=== PATIENT | female | born 1975 | race African-American/Black ===

== ENCOUNTER 2017-04-16 09:59 | Emergency (ER) | payer SELFPAY ==
[2017-04-16 10:25] VITALS: BP 187/90
--- NOTE | 2017-04-16 10:26 | UC ---
Neck Pain HPI - HPI Summary HPI Summary: 41 year old female presents with left sided neck spasm/pain. - History of Current Complaint Chief Complaint: UCUpperExtremity Stated Complaint: SHOULDER AND NECK PAIN Time Seen by Provider: 04/16/17 10:26 Hx Obtained From: Patient Hx Last Menstrual Period: 03/26/17 Onset/Duration Of Injury/Symptoms: Days Onset/Duration: Sudden Onset Severity: Moderate Pain Scale Used: 0-10 Numeric - 7 Character: Sharp, Spasmotic Aggravating Factors: Movement, Medication Alleviating Factors: Position Associated Signs & Symptoms: Positive: Negative - Allergies/Home Medications Allergies/Adverse Reactions: Allergies Allergy/AdvReac Type Severity Reaction Status Date / Time Amoxicillin Allergy Rash Verified 04/16/17 10:25 Penicillins Allergy Rash Verified 04/16/17 10:25 PMH/Surg Hx/FS Hx/Imm Hx Previously Healthy: Yes - Surgical History Surgical History: Yes Surgery Procedure, Year, and Place: TONSILLECTOMY 1997 - Family History Known Family History: Positive: Hypertension - Social History Alcohol Use: Occasionally Substance Use Type: None Smoking Status (MU): Heavy Every Day Tobacco Smoker Type: Cigarettes Amount Used/How Often: 1/2 PPD Have You Smoked in the Last Year: Yes Household Exposure Type: Cigarettes - Immunization History Most Recent Influenza Vaccination: NOT UTD Review Of Systems Constitutional: Positive: Negative Skin: Positive: Negative Eyes: Positive: Negative ENT: Positive: Negative Respiratory: Positive: Negative Cardiovascular: Positive: Negative Gastrointestinal: Positive: Negative Genitourinary: Positive: Negative Musculoskeletal: Positive: Other: - neck spasm Neurological: Positive: Negative All Other Systems Reviewed And Are Negative: Yes Physical Exam Triage Information Reviewed: Yes Vital Signs: Initial Vital Signs Temp 37.7 C 04/16/17 10:20 Pulse 83 04/16/17 10:20 Resp 18 04/16/17 10:20 BP 187/90 04/16/17 10:20 Pulse Ox 100 04/16/17 10:20 Eye Exam: Normal ENT Exam: Normal Dental Exam: Normal Neck: Positive: Other: - neck spasm Respiratory Exam: Normal Cardiovascular Exam: Normal Abdominal Exam: Normal Musculoskeletal Exam: Normal Neurological Exam: Normal Psychological Exam: Normal Skin Exam: Normal Neck Pain Course/Dx - Differential Dx/Diagnosis Provider Diagnoses: neck spasm Discharge - Discharge Plan Condition: Stable Disposition: HOME Prescriptions: Meloxicam(NF) [Mobic(NF)] 7.5 mg PO BID #30 tab Methocarbamol TAB* [Robaxin 500 MG TAB*] 500 mg PO TID PRN #30 tab PRN Reason: Spasms Patient Education Materials: Muscle Spasm (ED) Forms: *Work Release Referrals: [facility] Physical therapy,PT [Medical Doctor] - No Primary Care Phys,NOPCP [Primary Care Provider] -
== END 2017-04-16 10:43 | disposition home or self-care (01) ==
LOC: UCEAST 09:59
DX: M62.838 Other muscle spasm (principal); F17.210 Nicotine dependence, cigarettes, uncomplicated; Z88.0 Allergy status to penicillin
CPT/HCPCS: 99212; G0463

== ENCOUNTER 2017-07-29 07:04 | Emergency (ER) | payer BC ==
[2017-07-29 07:21] VITALS: BP 139/90
--- NOTE | 2017-07-29 08:01 | RAD ---
INDICATION: Cough COMPARISON: Most recent comparison chest x-ray is dated November 02, 2007 TECHNIQUE: PA and lateral views of the chest were obtained. FINDINGS: The heart and mediastinum are normal in size and contour. The lungs are grossly clear. There is no evidence of large pleural effusion. Visualized bones are normal for the patient's age. There is no radiographic evidence of free air beneath the diaphragm IMPRESSION: No radiographic evidence of acute cardiopulmonary disease.
--- NOTE | 2017-07-29 08:38 | UC ---
Farhad aCrr Stephanie, scribed for Keenan Roldan MD on 07/29/17 at 0741 . Respiratory Complaint HPI - HPI Summary HPI Summary: The pt is a 42 y/o F presenting to with c/o SOB that began on 07/26/17. Symptoms include dry cough and chills. She states she was recently sick 3 weeks ago with chills and watery eyes. - History of Current Complaint Chief Complaint: UCGeneralIllness Stated Complaint: CHEST CONGESTION, AND COUGH Time Seen by Provider: 07/29/17 07:10 Hx Obtained From: Patient Hx Last Menstrual Period: 07/22/17 ?: No Onset/Duration: Gradual Onset, Lasting Days - 3, Still Present Severity Currently: Moderate Pain Intensity: 8 Pain Scale Used: 0-10 Numeric Character: Cough: Nonproductive Aggravating Factors: Nothing Alleviating Factors: Nothing Associated Signs And Symptoms: Positive: Chills Related History: Seasonal Allergies - Allergies/Home Medications Allergies/Adverse Reactions: Allergies Allergy/AdvReac Type Severity Reaction Status Date / Time amoxicillin Allergy Rash Verified 07/29/17 07:25 Penicillins Allergy Rash Verified 07/29/17 07:25 Home Medications: Home Medications Ibuprofen 400 mg PO Q6HR 07/29/17 [History Confirmed 07/29/17] PMH/Surg Hx/FS Hx/Imm Hx Respiratory History: Asthma, Other - seasonal allergies Other Respiratory History: none - Surgical History Surgical History: Yes Surgery Procedure, Year, and Place: TONSILLECTOMY 1997 - Family History Known Family History: Positive: Hypertension - Social History Occupation: Employed Full-time Lives: With Family Alcohol Use: Occasionally Substance Use Type: None Smoking Status (MU): Heavy Every Day Tobacco Smoker Type: Cigarettes Amount Used/How Often: 1/2 PPD Have You Smoked in the Last Year: Yes Household Exposure Type: Cigarettes - Immunization History Most Recent Influenza Vaccination: NOT UTD Review of Systems Constitutional: Chills Skin: Negative Eyes: Negative ENT: Negative Respiratory: Cough Cardiovascular: Negative Gastrointestinal: Negative Genitourinary: Negative Motor: Negative Neurovascular: Negative Musculoskeletal: Negative Neurological: Negative Psychological: Negative Is Patient Immunocompromised?: No All Other Systems Reviewed And Are Negative: Yes Physical Exam - Summary Physical Exam Summary: VITAL SIGNS: Reviewed. GENERAL: Patient is a well developed and nourished F who is lying comfortable in the stretcher. Patient is not in any acute respiratory distress. HEAD AND FACE: Normocephalic EYES: PERRLA, EOMI x 2. EARS: Hearing grossly intact. MOUTH: Oropharynx within normal limits. NECK: Supple, trachea is midline, no adenopathy, no JVD, no carotid bruit. CHEST: Symmetric, no tenderness at palpation LUNGS: coarse breath sounds bilaterally. CVS: Regular rate and rhythm, S1 and S2 present, no murmurs or gallops appreciated. ABDOMEN: Soft, non-tender. Bowel sounds are normal. No abdominal abnormal pulsations. EXTREMITIES: Full ROM in all major joints, no edema, no cyanosis or clubbing. NEURO: Alert and oriented x 3. No acute neurological deficits. Speech is normal and follows commands. SKIN: diaphoretic and warm Triage Information Reviewed: Yes Vital Signs: Initial Vital Signs Temp 99.4 F 07/29/17 07:14 Pulse 94 07/29/17 07:14 Resp 20 07/29/17 07:14 BP 139/90 07/29/17 07:14 Pulse Ox 99 07/29/17 07:14 Vital Signs Reviewed: Yes Diagnostic Evaluation - Laboratory O2 Sat by Pulse Oximetry: 99 Respiratory Course/Dx - Course Course Of Treatment: The pt is a 42 y/o F presenting to with c/o SOB that began on 07/26/17. Symptoms include dry cough and chills. She states she was recently sick 3 weeks ago with chills and watery eyes. I discussed all the findings and test results with the patient. Patient was instructed to return to the urgent care or go to ER immediately if any of the symptoms return or worsens. Plan of care was discussed with the patient, and patient understands and agrees. All questions were answered to patient satisfaction. There were no further complaints or concerns. Patient ? intermittent and dry productive cough and intermittent fever. She has hx of Asthma. CXR no acute pathology. Breath sounds are coarse. I believe patient has Bronchitis. Because of the PMH and the length of the symptoms I will be given patient Rx for Z bryan. Influenza test negative. I discussed all the findings and test results with the patient. Patient was instructed to return to the emergency room immediately if any of the symptoms return or worsens. Plan of care was discussed with the patient and understands and agrees. All questions were answered at patient satisfaction. There were no further complaints or concerns. Lung exam before discharge: CTA B /L. Good air exchange. No wheezing or crackles heard. CVS: S1 and S2 present. No murmurs appreciated. Patient is alert and oriented x 3. Patient is hemodynamically stable. Patient will be discharged home with follow up [employer] in the next 2-3 days. The patient was found to have increased BP in UC. The patient will follow up with PCP for better control of BP. - Differential Dx/Diagnosis Differential Diagnosis/HQI/PQRI: Asthma, Bronchitis, CHF, Pulmonary Edema, Lower Resp Infection, Sinusitis Provider Diagnoses: Bronchitis. elevated BP without dx of HTN Discharge - Sign-Out/Discharge Documenting (check all that apply): Discharge - Discharge Plan Condition: Stable Disposition: HOME Prescriptions: Azithromyxin BRYAN (NF) [Z-Bryan (Zithromax) 250 mg tabs #6] 2 tab PO .TODAY, THEN 1 DAILY #6 tab Patient Education Materials: Acute Bronchitis (ED) Referrals: [facility] [place] PHYSICIAN REFERRAL [Outside] Additional Instructions: Take medications as instructed Increase your fluid intake Return to the UC if symptoms worsen FOLLOW UP WITH YOUR PRIMARY CARE PROVIDER WITHIN ONE WEEK FOR HIGH BLOOD PRESSURE NOTED TODAY. - Billing Disposition and Condition Condition: STABLE Disposition: HOME The documentation as recorded by the Farhad kang Stephanie accurately reflects the service I personally performed and the decisions made by me, Keenan Roldan MD.
== END 2017-07-29 08:34 | disposition home or self-care (01) ==
LOC: UCEAST 07:04
DX: J40 Bronchitis, not specified as acute or chronic (principal); R03.0 Elevated blood-pressure reading, without diagnosis of hypertension; Z88.0 Allergy status to penicillin; F17.210 Nicotine dependence, cigarettes, uncomplicated
CPT/HCPCS: 71046; 87502; 99212; G0463

== ENCOUNTER 2017-08-02 10:36 | Emergency (ER) | payer BC ==
[2017-08-02] MEDS ORDERED: Albuterol/Ipratropium NEB.SOL* Albuterol 2.5 MG/Ipratropium 0.5 MG 3 ML INH ONE (11:54)
[2017-08-02 13:40] VITALS: BP 138/71
--- NOTE | 2017-08-02 16:36 | ED ---
Patricia Carr Nilda, scribed for Ramana Jara MD on 08/02/17 at 1150 . Respiratory - HPI Summary HPI Summary: This patient is a 42 year old F presenting to [facility] accompanied by family with a chief complaint of constant severe cough for the past week. 5 days ago, pt went to [facility] [place], was Dx with bronchitis, and given Z-abbie. CXR at [facility] was negative as well as flu tests, per pt. Pt states she completed course of Z-abbie today, but symptoms have worsened. The patient rates the sharp pain 8/10 in severity. Patient reports chills, neck pain, back pain, and SOB (worse at night) . Patient denies fever. PMHx includes seasonal asthma treated with nebulizer and inhaler in the past. Pt is a smoker. - History of Current Complaint Chief Complaint: EDFluSymptoms Stated Complaint: SOB/COUGH/VOMITING Time Seen by Provider: 08/02/17 11:39 Hx Obtained From: Patient Onset/Duration: Sudden Onset, Lasting Weeks, Still Present Timing: Constant Current Severity: Severe Pain Intensity: 8 Character: Cough (Nonproductive) Alleviating Factor(s): Nothing Associated Signs and Symptoms: Chills - Allergy/Home Medications Allergies/Adverse Reactions: Allergies Allergy/AdvReac Type Severity Reaction Status Date / Time amoxicillin Allergy Rash Verified 08/02/17 11:55 Penicillins Allergy Rash Verified 08/02/17 11:55 PMH/Surg Hx/FS Hx/Imm Hx Endocrine/Hematology History: Denies: Hx Diabetes, Hx Thyroid Disease Cardiovascular History: Reports: Hx Hypertension Respiratory History: Reports: Hx Asthma Denies: Hx Chronic Obstructive Pulmonary Disease (COPD) GI History: Denies: Hx Ulcer Psychiatric History: Denies: Hx Eating Disorder, Hx of Violent Episodes Against Others - Surgical History Surgery Procedure, Year, and Place: TONSILLECTOMY 1998 Infectious Disease History: No Infectious Disease History: Denies: Hx Clostridium Difficile, Hx Hepatitis, Hx Human Immunodeficiency Virus (HIV), Hx of Known/Suspected MRSA, Traveled Outside the [place] in Last 30 Days - Family History Known Family History: Positive: Hypertension - Social History Alcohol Use: Occasionally Substance Use Type: Reports: None Smoking Status (MU): Heavy Every Day Tobacco Smoker Type: Cigarettes Amount Used/How Often: 1/2 PPD Have You Smoked in the Last Year: Yes Review of Systems Positive: Chills. Negative: Fever Positive: Shortness Of Breath, Cough Positive: Other - back pain, neck pain All Other Systems Reviewed And Are Negative: Yes Physical Exam - Summary Physical Exam Summary: Appearance: The patient is well-nourished in no acute distress and in no acute pain. Skin: The skin is warm and dry and skin color reflects adequate perfusion. HEENT: The head is normocephalic and atraumatic. The pupils are equal and reactive. The conjunctivae are clear and without drainage. Nares are patent and without drainage. Mouth reveals moist mucous membranes and the throat is without erythema and exudate. The external ears are intact. The ear canals are patent and without drainage. The tympanic membranes are intact. Neck: the neck is supple with full range of motion and non-tender. There are no carotid bruits. There is no neck vein distension. Respiratory: Chest is non-tender. Decreased breath sounds. A few rhonchi diffusely. Cardiovascular: Heart is regular rate and rhythm. There is no murmur or rub auscultated. There is no peripheral edema and pulses are symmetrical and equal. Abdomen: The abdomen is soft and non-tender. There are normal bowel sounds heard in all four quadrants and there is no organomegaly palpated. Musculoskeletal: There is no back tenderness noted. Extremities are non-tender with full range of motion. There is good capillary refill. There is no peripheral edema or calf tenderness elicited. Neurological: Patient is alert and oriented to person, place and time. The patient has symmetrical motor strength in all four extremities. Cranial nerves are grossly intact. Deep tendon reflexes are symmetrical and equal in all four extremities. Psychiatric: The patient has an appropriate affect and does not exhibit any anxiety or depression. Triage Information Reviewed: Yes Vital Signs On Initial Exam: Initial Vitals Temp Pulse Resp BP Pulse Ox 97.8 F 77 22 158/84 100 08/02/17 10:37 08/02/17 10:37 08/02/17 10:37 08/02/17 10:37 08/02/17 10:37 Vital Signs Reviewed: Yes Diagnostics - Vital Signs Vital Signs Temp Pulse Resp BP Pulse Ox 08/02/17 10:37 97.8 F 77 22 158/84 100 - Laboratory Lab Statement: Any lab studies that have been ordered have been reviewed, and results considered in the medical decision making process. Re-Evaluation - Re-Evaluation First Eval Re-Evaluation Time: 13:12 Change: Improved Comment: Pt improved after breathing treatment. Discussed treatment plan with pt. Pt requests stronger cough medicine. Disposition - Course Course Of Treatment: Ms. Nova has a history of asthma but has not been on medications for a few years. She used to use a nebulizer. She has had a recent diagnosis of bronchitis and was placed on a Z-pack but feels worse. She had mild wheezing on arrival and felt a bit better with a neb. I started her on steeroids and an inhaler temporarily. - Diagnoses Provider Diagnoses: Asthma exacerbation Discharge - Sign-Out/Discharge Documenting (check all that apply): Discharge - home - Discharge Plan Condition: Stable Disposition: HOME Prescriptions: Albuterol HFA INHALER* [Ventolin HFA Inhaler*] 1 puff INH Q4H PRN #1 mdi PRN Reason: Cough Codeine Phosphate/Guaifenesin [Guaiatussin AC Liquid] 5 ml PO Q4HR #120 ml MDD 30 cc methylPREDNISolone [Medrol Dosepak 4 MG*] 4 mg PO .SEE ABBIE INSTRUCTION #1 tab Patient Education Materials: Asthma (ED) Referrals: Jose Don MD [Primary Care Provider] - 2 Days Additional Instructions: RETURN TO THE EMERGENCY DEPARTMENT FOR CHANGING OR WORSENING SYMPTOMS. - Billing Disposition and Condition Condition: STABLE Disposition: HOME The documentation as recorded by the Patricia kang Nilda accurately reflects the service I personally performed and the decisions made by me, Ramana Jara MD.
== END 2017-08-02 13:46 | disposition home or self-care (01) ==
LOC: ED 10:36
DX: J45.901 Unspecified asthma with (acute) exacerbation (principal); F17.210 Nicotine dependence, cigarettes, uncomplicated; I10 Essential (primary) hypertension
CPT/HCPCS: 94640; 99284; A9270-GY

== ENCOUNTER 2017-08-21 10:49 | Emergency (ER) | payer BC ==
[2017-08-21 11:19] VITALS: BP 147/84
--- NOTE | 2017-08-21 12:18 | UC ---
Respiratory Complaint HPI - HPI Summary HPI Summary: Pt c/o sudden onset of cough, nasal congestion, and chest congestion and left lateral chest congestion that happened today while at work. - History of Current Complaint Chief Complaint: UCRespiratory Stated Complaint: UPPER RESPIRATORY Time Seen by Provider: 08/21/17 12:14 Hx Obtained From: Patient Hx Last Menstrual Period: 08/12/17 ?: No Onset/Duration: Sudden Onset, Lasting Minutes, Resolved Timing: Constant Severity Initially: Mild Severity Currently: Mild Pain Intensity: 5 Character: Cough: Nonproductive Aggravating Factors: Deep Breaths Alleviating Factors: Spontaneous Resolution Associated Signs And Symptoms: Positive: Wheezing, URI, Nasal Congestion Related History: Seasonal Allergies - Risk Factors Pulmonary Embolism Risk Factors: Negative Cardiac Risk Factors: Smoking Pseudomonas Risk Factors: Negative Tuberculosis Risk Factors: Smoking - Allergies/Home Medications Allergies/Adverse Reactions: Allergies Allergy/AdvReac Type Severity Reaction Status Date / Time amoxicillin Allergy Rash Verified 08/21/17 11:15 Penicillins Allergy Rash Verified 08/21/17 11:15 PMH/Surg Hx/FS Hx/Imm Hx Previously Healthy: Yes - Surgical History Surgical History: Yes Surgery Procedure, Year, and Place: TONSILLECTOMY 1997 - Family History Known Family History: Positive: Hypertension - Social History Occupation: Employed Full-time Lives: With Family Alcohol Use: Occasionally Substance Use Type: None Smoking Status (MU): Heavy Every Day Tobacco Smoker Type: Cigarettes Amount Used/How Often: 1/2 PPD Have You Smoked in the Last Year: Yes Household Exposure Type: Cigarettes - Immunization History Most Recent Influenza Vaccination: NOT UTD Review of Systems Constitutional: Negative Skin: Negative Eyes: Negative ENT: Nasal Discharge Respiratory: Shortness Of Breath, Cough Cardiovascular: Negative Gastrointestinal: Negative Genitourinary: Negative Motor: Negative Neurovascular: Negative Musculoskeletal: Negative Neurological: Negative Psychological: Negative Is Patient Immunocompromised?: No All Other Systems Reviewed And Are Negative: Yes Physical Exam Triage Information Reviewed: Yes Appearance: Well-Appearing Vital Signs: Initial Vital Signs Temp 98.6 F 08/21/17 11:12 Pulse 94 08/21/17 11:12 Resp 22 08/21/17 11:12 BP 147/84 08/21/17 11:12 Pulse Ox 100 08/21/17 11:12 Vital Signs Reviewed: Yes Eye Exam: Normal ENT: Positive: Nasal congestion Neck exam: Normal Respiratory Exam: Normal Respiratory: Positive: Lungs clear Cardiovascular Exam: Normal Musculoskeletal Exam: Normal Neurological Exam: Normal Psychological Exam: Normal Skin Exam: Normal UC Diagnostic Evaluation - Laboratory O2 Sat by Pulse Oximetry: 100 Respiratory Course/Dx - Differential Dx/Diagnosis Differential Diagnosis/HQI/PQRI: Bronchitis, Other - reactive airway, seasonal allergies Provider Diagnoses: reactive airway disease Discharge - Sign-Out/Discharge Documenting (check all that apply): Discharge/Admit/Transfer - Discharge Plan Condition: Stable Disposition: HOME Prescriptions: Benzonatate CAP* [Tessalon 100 MG CAP*] 100 mg PO Q8H PRN #30 cap PRN Reason: Cough LevoCETirizine TAB (NF) [Xyzal TAB (NF)] 5 mg PO DAILY #10 tab predniSONE TAB* [Deltasone TAB*] 30 mg PO DAILY #12 tab Patient Education Materials: Reactive Airways Disease (ED) Referrals: [facility] [place] [facility]YSICIAN REFERRAL [Outside] No Primary Care Phys,NOPCP [Primary Care Provider] - - Billing Disposition and Condition Condition: STABLE Disposition: HOME
== END 2017-08-21 12:34 | disposition home or self-care (01) ==
LOC: UCCORT 10:49
DX: J45.909 Unspecified asthma, uncomplicated (principal); Z88.0 Allergy status to penicillin; F17.210 Nicotine dependence, cigarettes, uncomplicated
CPT/HCPCS: 99212; G0463

== ENCOUNTER 2018-02-18 10:32 | Emergency (ER) | payer BC ==
[2018-02-18 11:01] VITALS: BP 160/96
--- NOTE | 2018-02-18 11:18 | UC ---
Lower Extremity/Ankle HPI - HPI Summary HPI Summary: 6 days of progressively worsening right lateral ankle pain and swelling. Denies any injury or trauma. Pain is worse with weightbearing and ambulating. - History of Current Complaint Chief Complaint: UCLowerExtremity Stated Complaint: L FOOT PAIN Time Seen by Provider: 02/18/18 11:04 Hx Obtained From: Patient Hx Last Menstrual Period: 08/12/17 Onset/Duration: Gradual Onset, Lasting Days, Still Present Severity Initially: Moderate Severity Currently: Moderate Pain Intensity: 8 Pain Scale Used: 0-10 Numeric Aggravating Factor(s): Standing, Ambulation Alleviating Factor(s): Rest Able to Bear Weight: Yes - Allergies/Home Medications Allergies/Adverse Reactions: Allergies Allergy/AdvReac Type Severity Reaction Status Date / Time amoxicillin Allergy Rash Verified 02/18/18 11:01 Penicillins Allergy Rash Verified 02/18/18 11:01 PMH/Surg Hx/FS Hx/Imm Hx Cardiovascular History: Hypertension Respiratory History: Asthma - Surgical History Surgical History: Yes Surgery Procedure, Year, and Place: TONSILLECTOMY 1997 - Family History Known Family History: Positive: Hypertension - Social History Alcohol Use: Occasionally Substance Use Type: None Smoking Status (MU): Heavy Every Day Tobacco Smoker Type: Cigarettes Amount Used/How Often: 1/2 PPD Have You Smoked in the Last Year: Yes Household Exposure Type: Cigarettes - Immunization History Most Recent Influenza Vaccination: NOT UTD Review of Systems Constitutional: Negative Skin: Negative Respiratory: Negative Cardiovascular: Negative Gastrointestinal: Negative Musculoskeletal: Arthralgia, Decreased ROM, Edema All Other Systems Reviewed And Are Negative: Yes Physical Exam Triage Information Reviewed: Yes Appearance: Well-Appearing, No Pain Distress, Well-Nourished Vital Signs: Initial Vital Signs Temp 99.7 F 02/18/18 10:56 Pulse 79 02/18/18 10:56 Resp 18 02/18/18 10:56 BP 160/96 02/18/18 10:56 Pulse Ox 100 02/18/18 10:56 Vital Signs Reviewed: Yes Eyes: Positive: Conjunctiva Clear ENT: Positive: Hearing grossly normal Neck: Positive: Supple Respiratory: Positive: No respiratory distress, No accessory muscle use Cardiovascular: Positive: Pulses Normal Abdomen Description: Positive: Soft Musculoskeletal: Positive: ROM Limited @ - RIGHT ANKLE, Edema @ - RIGHT ANKLE LATERALLY, Other: - TTP RIGHT DISTAL FIBULA, LATERAL MALLEOLUS Neurological: Positive: Alert Psychological: Positive: Age Appropriate Behavior Skin: Negative: rashes Diagnostics - Radiology RIGHT ANKLE XRAY Radiology Interpretation Completed By: Radiologist Summary of Radiographic Findings: MILD DEGREE OF SOFT TISSUE SWELLING OVERLYING THE FIBULAR MALLEOLUS Lower Extremity Course/Dx - Course Course Of Treatment: X-ray shows soft tissue swelling but no bony injury. Will treat as a sprain with Esequiel wrap and gel splint. Rest, ice, compress, elevate. Follow-up if not improving as expected. Patient with history of asthma and is requesting a refill of her albuterol. No acute exacerbation of symptoms at present. - Differential Dx/Diagnosis Provider Diagnoses: 1. RIGHT ANKLE SPRAIN. 2. ASTHMA Discharge - Sign-Out/Discharge Documenting (check all that apply): Patient Departure All imaging exams completed and their final reports reviewed: Yes - Discharge Plan Condition: Stable Disposition: HOME Prescriptions: Albuterol HFA INHALER* [Ventolin HFA Inhaler*] 2 puff INH Q4H PRN #1 mdi PRN Reason: Shortness Of Breath Patient Education Materials: Ankle Sprain (ED) Forms: *Work Release Referrals: No Primary Care Phys,NOPCP [Primary Care Provider] - Additional Instructions: RIGHT ANKLE XRAY TODAY SHOWS MILD DEGREE OF SOFT TISSUE SWELLING BUT NO ACUTE BONY INJURY. YOUR PRESENTATION IS CONSISTENT WITH A SPRAIN. YOUR SYMPTOMS SHOULD IMPROVE SIGNIFICANTLY OVER THE NEXT 1-2 WEEKS. IF YOU DO NOT IMPROVE EXPECTED FOLLOW- UP WITH YOUR PCP. YOU MAY BENEFIT FROM REPEAT IMAGING AT THAT TIME. OTC IBUPROFEN OR ALEVE NEEDED FOR DISCOMFORT. REST, ICE, COMPRESS, ELEVATE. ESEQUIEL WRAP AND GEL SPLINT NEEDED FOR SYMPTOM RELIEF. BE SURE TO GO THROUGH SLOW RANGE OF MOTION AND STRETCHING EXERCISES DAILY YOU ARE ABLE TO PREVENT STIFFENING UP AND MAKING THE DISCOMFORT WORSE. CALL THE NUMBER BELOW FOR ASSISTANCE IN ESTABLISHING WITH A PCP An additional resource available to assist in finding the appropriate physician for your health care needs is the [facility] ([facility]). You may contact them by calling [phone]. - Billing Disposition and Condition Condition: STABLE Disposition: Home
--- NOTE | 2018-02-18 11:54 | RAD ---
INDICATION: Atraumatic swelling of the lateral right ankle x1 week COMPARISON: Foot radiograph dated May 06, 2015 TECHNIQUE: 3 views of the right ankle were obtained. FINDINGS: There is a very mild degree of soft tissue swelling overlying the fibular malleolus. There is an enthesophyte at the calcaneal tubercle at the origin of the plantar fascia. The bones are normal alignment. Joint spaces appear maintained. No fracture is seen. IMPRESSION: MILD DEGREE OF SOFT TISSUE SWELLING OVERLYING THE FIBULAR MALLEOLUS IN THIS OTHERWISE NONACUTE RADIOGRAPHIC SERIES OF THE RIGHT ANKLE. If the patient's symptoms persist, follow-up imaging is recommended.
== END 2018-02-18 12:30 | disposition home or self-care (01) ==
LOC: UCEAST 10:32
DX: S93.401A Sprain of unspecified ligament of right ankle, initial encounter (principal); X58.XXXA Exposure to other specified factors, initial encounter; Y92.9 Unspecified place or not applicable; J45.909 Unspecified asthma, uncomplicated; Z88.0 Allergy status to penicillin; F17.210 Nicotine dependence, cigarettes, uncomplicated
CPT/HCPCS: 99213; G0463

== ENCOUNTER 2019-01-26 13:31 | Emergency (ER) | payer BC ==
[2019-01-26 13:46] VITALS: BP 177/84
--- NOTE | 2019-01-26 13:55 | UC ---
Bite Injury/Animal HPI - HPI Summary HPI Summary: 44-year-old woman comes in with chief complaint of a tick bite in the left upper arm. Patient found it this morning. Was removed with tweezers. Area is tender and is erythematous. It appears that they got the whole body and head. No fevers chills. Feels well otherwise. The rash that's present is not in a bull's-eye shape. - History of Current Complaint Chief Complaint: [place] Stated Complaint: TICK BITE Time Seen by Provider: 01/26/19 13:40 Hx Last Menstrual Period: 01/22/19 Pain Intensity: 7 - Allergies/Home Medications Allergies/Adverse Reactions: Allergies Allergy/AdvReac Type Severity Reaction Status Date / Time amoxicillin Allergy Rash Verified 02/18/18 11:01 Penicillins Allergy Rash Verified 02/18/18 11:01 PMH/Surg Hx/FS Hx/Imm Hx Previously Healthy: Yes - Surgical History Surgical History: Yes Surgery Procedure, Year, and Place: TONSILLECTOMY 1997 - Family History Known Family History: Positive: Hypertension - Social History Alcohol Use: Occasionally Substance Use Type: None Smoking Status (MU): Heavy Every Day Tobacco Smoker Type: Cigarettes Amount Used/How Often: 1/2 PPD Have You Smoked in the Last Year: Yes Household Exposure Type: Cigarettes - Immunization History Most Recent Influenza Vaccination: NOT UTD Review of Systems All Other Systems Reviewed And Are Negative: Yes Constitutional: Positive: Negative Skin: Positive: Other - SEE HPI Eyes: Positive: Negative ENT: Positive: Negative Respiratory: Positive: Negative Cardiovascular: Positive: Negative Gastrointestinal: Positive: Negative Motor: Positive: Negative Neurovascular: Positive: Negative Musculoskeletal: Positive: Negative Neurological: Positive: Negative Psychological: Positive: Negative Is Patient Immunocompromised?: No Physical Exam Triage Information Reviewed: Yes Appearance: Well-Appearing, No Pain Distress, Well-Nourished Vital Signs: Initial Vital Signs Temp 99 F 01/26/19 13:43 Pulse 84 01/26/19 13:43 Resp 18 01/26/19 13:43 BP 177/84 01/26/19 13:43 Pulse Ox 100 01/26/19 13:43 Vital Signs Reviewed: Yes Eye Exam: Normal Eyes: Positive: Conjunctiva Clear Neck: Positive: Supple Respiratory: Positive: No respiratory distress Musculoskeletal: Positive: Strength Intact, ROM Intact Neurological: Positive: Alert Psychological: Positive: Age Appropriate Behavior Skin: Positive: Other - Over the left triceps is a 2 and half centimeter area of erythema with a punctate puncture wound in the middle where the tick was. The area is tender to palpation. It does anu. It's not in a bull's-eye distribution. Bite Injury Course/Dx - Course Course Of Treatment: I discussed the treatment of it tick bite without a bull's-eye rash or signs of Lyme disease and also the treatment of Lyme's disease. At this time the patient prefers to take a 200 mg and if the rash goes away within the day and discontinue any further treatment unless symptoms of Lyme disease occur. However if the rash does not get better or if is any symptoms of Lyme disease we will treat for 2 weeks of doxycycline 100 mg by mouth twice a day. - Differential Dx/Diagnosis Provider Diagnosis: Tick bite of left upper arm Discharge ED - Sign-Out/Discharge Documenting (check all that apply): Patient Departure All imaging exams completed and their final reports reviewed: No Studies - Discharge Plan Condition: Stable Disposition: HOME Prescriptions: DOXYcycline CAP(*) [DOXYcycline 100MG CAP(*)] 100 mg PO BID #28 cap Patient Education Materials: Lyme Disease (ED), Tick Bite (ED) Referrals: Oswaldo Burgess MD [Primary Care Provider] - Additional Instructions: FOLLOW UP WITH YOUR DOCTOR IF NOT COMPLETELY IMPROVED. The antibiotic treatment for tick bite that's not infected and has no signs of Lyme disease is doxycycline 200 mg once. The antibiotic treatment for Lyme disease is doxycycline 100 mg twice a day for 14 days. GET RECHECKED SOONER IF YOUR CONDITION WORSENS OR ANY QUESTIONS OR CONCERNS. - Billing Disposition and Condition Condition: STABLE Disposition: Home
== END 2019-01-26 13:59 | disposition home or self-care (01) ==
LOC: UCEAST 13:31
DX: S40.862A Insect bite (nonvenomous) of left upper arm, initial encounter (principal); F17.210 Nicotine dependence, cigarettes, uncomplicated; Z88.0 Allergy status to penicillin; W57.XXXA Bitten or stung by nonvenomous insect and other nonvenomous arthropods, initial encounter; Y92.9 Unspecified place or not applicable
CPT/HCPCS: 99212; G0463